=== PATIENT | female | born 1990 | race African-American/Black ===

== ENCOUNTER 2017-01-22 07:51 | Emergency (ER) | payer OTHER ==
[~2017-01-22 07:51] MED LIST: KEPPRA500 MG PO
== END 2017-01-22 08:15 | disposition home or self-care (01) ==
LOC: CED 07:51
DX: G40.909 Epilepsy, unspecified, not intractable, without status epilepticus (principal); Z91.14 Patient's other noncompliance with medication regimen; Z79.899 Other long term (current) drug therapy
CPT/HCPCS: 99284

== ENCOUNTER 2017-07-17 23:53 | Emergency (ER) | payer OTHER ==
[~2017-07-17] VITALS: Ht 167.6 cm; Wt 54.4 kg
== END 2017-07-18 01:35 | disposition home or self-care (01) ==
LOC: CED 23:53
DX: L50.1 Idiopathic urticaria (principal); G40.909 Epilepsy, unspecified, not intractable, without status epilepticus
CPT/HCPCS: 99283